=== PATIENT | male | born 1950 | race Caucasian/White ===

== ENCOUNTER 2017-06-23 10:21 | Outpatient (CLI) | payer MEDICARE ==
--- NOTE | 2017-06-23 13:18 | MRI ---
LUMBAR SPINE MRI WITHOUT CONTRAST: DATE: 06/23/17. COMPARISON: 05/07/15. HISTORY: Lumbar radiculopathy, back pain with pain radiating down the right leg for 2 years. TECHNIQUE: Multiplanar multisequence MR imaging of the lumbar spine provided without contrast. FINDINGS: The STIR imaging demonstrates edematous degenerative end plate change at the L5-S1 level laterally on the right, and centrally within the anterior aspect of the L2-3 and L3-4 interspace. These edematou s degenerative end plate changes are new at L5-S1 and have worsened at L3-4. On the basis of 5 lumbar-type vertebral bodies, the conus medullaris terminates in the L2 region. T12-L1: Mild bilateral facet hypertrophy. Intervertebral disk height and signal intensity is within normal limits. No significant central canal or neural foraminal stenosis. L1-2: Bilateral facet hypertrophy. There is disk space narrowing and disk desiccation. No signific ant central canal or neural foraminal stenosis. L2-3: Bilateral facet hypertrophy and hypertrophy of the ligamentum flavum. There is disk space ya rowing, disk desiccation, and disk bulge with mild central canal stenosis. There is moderate bilater al neural foraminal stenosis. L3-4: Disk space narrowing, disk desiccation, bilateral facet hypertrophy, and mild disk bulge prese nt with mild central canal stenosis. Moderate/severe bilateral neural foraminal stenosis noted, righ t greater than left. L4-5: There is disk space narrowing and disk desiccation with partial osseous fusion at the interver tebral disk level. There is a disk-osteophyte complex present. There is bilateral facet hypertrophy and hypertrophy of the ligamentum flavum with a moderate/severe degree of central canal stenosis. T here is moderate bilateral neural foraminal stenosis, right greater than left. L5-S1: Bilateral facet hypertrophy present. There is disk space narrowing, disk desiccation, and di sk bulge with mild central canal stenosis. There is severe bilateral neural foraminal stenosis. The degree of central canal and neural foraminal stenosis seen within the lumbar spine described above i s not significantly changed when compared to the 05/07/15 examination. The imaged retroperitoneal structures appear grossly unremarkable. IMPRESSION: Severe multilevel degenerative disk disease with areas of central canal and neural foraminal stenosis as described above. POS: [facility]
== END 2017-06-23 10:22 | disposition home or self-care (01) ==
LOC: TBSIIMAG 10:21
PROVIDERS: ATTEND Neurological Surgery
DX: M51.16 Intervertebral disc disorders with radiculopathy, lumbar region (principal); M48.061 Spinal stenosis, lumbar region without neurogenic claudication; M99.83 Other biomechanical lesions of lumbar region
CPT/HCPCS: 72148

== ENCOUNTER 2017-10-20 20:31 | Emergency (ER) | payer MEDICARE ==
[2017-10-20 21:16] LABS: #Basophils 0.1 thou/uL (0.0-0.2); #Eosinphils 0.2 thou/uL (0.0-0.7); #Lymphocytes 2.2 thou/uL (1.20-3.40); #Monocytes 0.7 thou/uL (0.11-0.59); #Neutrophils 6.5 thou/uL (1.40-6.50); %Basophils 0.9 % (0.0-1.0); %Eosinophils 1.8 % (0.0-10.0); %Lymphocytes 22.6 % (21.0-51.0); %Monocytes 7.2 % (0.0-10.0); %Neutrophils 67.5 % (42.0-75.0); Hemoglobin 12.6 g/dL (14.0-18.0); Mean Corpuscular HGB CONC 35.9 g/dL (32.0-36.0); Mean Corpuscular Hemoglobin 29.3 pg (27.0-31.0); Mean Corpuscular Volume 81.7 fL (78.0-98.0); Mean Platelet Volume 6.9 fL (7.4-10.4); Platelet Count 255 thou/uL (130-400); Red Blood Cell (RBC) Count 4.28 mill/uL (4.70-6.10); White Blood Cell (WBC) Count 9.6 thou/uL (4.8-10.8)
[2017-10-20 21:24] LABS: AST (SGOT) 19 U/L (5-34); Albumin 3.5 g/dL (3.4-4.8); Alkaline Phosphatase 76 U/L (40-150); Anion Gap 11 mmol/L (10-20); BUN (Urea Nitrogen) 23 mg/dL (8.4-25.7); Bilirubin, Total 0.4 mg/dL (0.2-1.2); Calc. Creatinine Clearance 0 mL/min (70-130); Carbon Dioxide 24 mmol/L (23-31); Chloride 102 mmol/L (98-107); Estimated GFR-MDRD 81; Globulin 2.9 g/dL (2.4-3.5); Glucose 79 mg/dL (80-115); Protein, Total 6.4 g/dL (5.8-8.1); Sodium 133 mmol/L (136-145)
[2017-10-20 21:25] LABS: ALT (SGPT) 20 U/L (8-55)
[2017-10-20 21:26] LABS: CKMB 3.1 ng/mL (0-6.6); Troponin I 0.025 ng/mL (< 0.028)
== END 2017-10-20 21:50 | disposition home or self-care (01) ==
LOC: SCSER 20:31
DX: I10 Essential (primary) hypertension (principal); E78.5 Hyperlipidemia, unspecified; Z79.4 Long term (current) use of insulin; Z79.899 Other long term (current) drug therapy
CPT/HCPCS: 80053; 82553; 84484; 85025; 93005